=== PATIENT | male | born 1950 | race African-American/Black ===

== ENCOUNTER 2022-11-20 10:51 | Emergency (ER) | payer OTHER ==
[~2022-11-20] VITALS: Ht 180.3 cm; Wt 98.2 kg
[~2022-11-20 10:51] MED LIST: ATEN-72 PO; GLIP10TA10 PO; INSLAN SQ; LISI-894 PO; METF-446 PO
[2022-11-20 10:58] VITALS: TEMP 98.8
[2022-11-20] MEDS ORDERED: BACITRACIN 0.9 GM PACKET OINTMENT TP ONE (11:15)
[2022-11-20] MEDS ORDERED: MORPHINE SULFATE 4 MG/ML SYRINGE IVP ONE (11:15)
[2022-11-20] MEDS ORDERED: PERTUSS(ACELL),DIPH,TET VAC/PF 0.5 ML SYRINGE IM. ONE (11:15)
[2022-11-20] MEDS ORDERED: SODIUM CHLORIDE 0.9% 1,000 ML IV ONE (11:30)
[2022-11-20 12:22] LABS: BASOPHILS % (AUTO) 0.7 % (0.0-2.0); EOSINOPHILS % (AUTO) 1.2 % (1.0-6.0); HEMATOCRIT 39.3 % (41-53); HEMOGLOBIN 13.1 g/dL (13.5-17.5); LYMPHOCYTES # (AUTO) 1.1 K/uL (1.0-4.8); MEAN CORPUSCULAR HEMOGLOBIN 30.3 pg (26.0-34.0); MEAN CORPUSCULAR HGB CONC 33.3 G/dL (31.0-37.0); MEAN CORPUSCULAR VOLUME 91 fL (80-100); MONOCYTES # (AUTO) 0.3 K/uL (0.1-1.0); MONOCYTES % (AUTO) 6.2 % (2.0-9.0); NEUTROPHILS # (AUTO) 3.8 K/uL (1.8-7.7); NEUTROPHILS % (AUTO) 71.9 % (40.0-70.0); PLATELET COUNT (AUTO) 216 K/uL (150-450); RED BLOOD CELL COUNT(AUTO) 4.32 MIL/uL (4.50-5.90); RED CELL DISTRIBUTION WIDTH 16.2 % (11.5-14.5)
[2022-11-20 12:35] LABS: CREATININE 1.61 mg/dL (0.60-1.30); POTASSIUM 3.9 mmol/L (3.5-5.1)
[2022-11-20 12:40] LABS: ALBUMIN 3.9 g/dL (3.4-5.0); BILIRUBIN,TOTAL 0.7 mg/dL (0.1-1.0)
[2022-11-20 12:48] VITALS: BP 134/70; PULSE 71; RESP 18
== END 2022-11-20 13:16 | disposition short-term general hospital (02) ==
LOC: EMS 11:04
DX: T23.301A Burn of third degree of right hand, unspecified site, initial encounter (principal); T31.0 Burns involving less than 10% of body surface; T21.21XA Burn of second degree of chest wall, initial encounter; I10 Essential (primary) hypertension; E11.40 Type 2 diabetes mellitus with diabetic neuropathy, unspecified; Z98.890 Other specified postprocedural states
CPT/HCPCS: 99285; 96374; 96361; 80053; 85025; 36415; 90715; 16020; 90471; J2270; J7030